=== PATIENT | female | born 1960 | race Hispanic/Latino ===

== ENCOUNTER 2024-11-15 10:49 | Inpatient (IN) | payer OTHER ==
[2024-11-15] MEDS ORDERED: ACETAMINOPHEN 500 MG TAB PO PRN (14:27)
--- NOTE | 2024-11-15 14:43 | P.HP ---
Certification for Inpatient Patient admitted to: Inpatient With expected LOS: >2 Midnights Patient will require the following post-hospital care: None Practitioner: I am a practitioner with admitting privileges, knowledge of patient current condition, hospital course, and medical plan of care. Services: Services provided to patient in accordance with Admission requirements found in Title 42 Section 412.3 of the Code of Federal Regulations Patient History Date of Service: 11/15/24 Reason for admission: Shortness of breath History of Present Illness: Patient is a 64-year-old female comes to the hospital with shortness of breath. Patient actually went to an outside hospital with these complaints. They did lab workup at the outside hospital which revealed a BNP of greater than 20,000. Patient's additional labs revealed BUN of 37 creatinine of 2.50, glucose of 211, total bilirubin 01.5, alk phos at 292, albumin of 3.0 and a troponin of 62.7 b elow the cutoff of 81.3, [place] [address], PT was 11.0 and a PTT of 24.7 and a D- dimer of 2312.2 with a cutoff being 500. Patient also was positive for rhino virus. At this time, patient will be accepted to our hospital for further plan of care. It appears the patient may have acute CHF exacerbation which may be exacerbated by upper respiratory viral infection. Patient's D-dimer is elevated so we need to rule out a pulmonary embolism and will get a V/Q scan performed as patient's creatinine is elevated. Allergies No Known Allergies Allergy (Unverified 11/15/24 13:42) Home Medications: Furosemide 40 mg PO BID* 11/15/24 Losartan Potassium 100 mg PO DAILY 11/15/24 Metoprolol Succinate 25 mg PO DAILY 11/15/24 Nifedipine [Nifedipine ER] 30 mg PO DAILY 11/15/24 - Past Medical/Surgical History Diabetic: Yes -: CKD -: CHF -: HTN -: COPD -: DM -: heart surgery - Family History Father Family History: Reviewed- Non-Contributory - Social History Smoking Status: Never smoker Alcohol use: No CD- Drugs: No Caffeine use: Yes Place of Residence: Home Review of Systems 10-point ROS is otherwise unremarkable Physical Examination - Vital Signs Temperature: 98 F Blood Pressure: 180/90 Pulse: 100 Respirations: 24 Pulse Ox (%): 85 - Physical Exam General: Alert, In no apparent distress, Oriented x3 HEENT: Atraumatic, PERRLA, Mucous membr. moist/pink, EOMI, Sclerae nonicteric Neck: Supple, 2+ carotid pulse no bruit, No LAD, Without JVD or thyroid abnormality Respiratory: Diminished, Crackles/rales Cardiovascular: Regular rate/rhythm, Normal S1 S2, Systolic murmur Gastrointestinal: Normal bowel sounds, Soft and benign, Non-distended, No tenderness Musculoskeletal: No clubbing, No tenderness, Swelling Integumentary: No rashes Neurological: Normal gait, Normal speech, Normal strength at 5/5 x4 extr, Normal tone, Sensation intact, Cranial nerves 3-12 intact, Normal affect Lymphatics: No axilla or inguinal lymphadenopathy Assessment & Plan - Problems (Diagnosis) (1) Acute respiratory failure Current Visit: Yes Status: Acute (2) Elevated d-dimer Current Visit: Yes Status: Acute (3) Acute CHF Current Visit: Yes Status: Acute (4) Acute kidney injury Current Visit: Yes Status: Acute (5) Hypoalbuminemia Current Visit: Yes Status: Acute - Plan 1. Acute respiratory failure with hypoxemia most likely related to acute CHF exacerbation as well as possibly a pulmonary embolism; patient will get a V/Q scan performed as well as echocardiogram. Cardiology consulted. Continue with strict blood pressure control and diuresing. Patient had a prior cardiac procedure will try to get the records regarding this. Her respiratory failure and acute CHF exacerbation is probably exacerbated by upper respiratory infection. Patient will continue with cardiac medications and will continue with Jardiance and check her for proteinuria. Patient will get renal ultrasound and a nephrology consultation as well. as D-dimer is elevated will get a V/Q scan to further evaluate for possible pulmonary embolism. Continue with anticoagulation for the time being. 2. Uncontrolled hypertension; blood pressure on arrival to the outside hospital was 190/100 with oxygen saturations of 85% on room air. After strict blood pressure control and diuresing patient patient's clinical status has improved. Will continue with aggressive current management. 3. Chronic kidney disease; patient may have acute on chronic kidney disease will continue monitoring renal function closely and get renal ultrasound and urine protein creatinine ratio was monitoring for urine protein. Additional renal workup per nephrology 4. rhino virus infection; supportive care 5. Gi DVT prophylaxis Critical care time spent on patient care was 55 minutes. Discharge Plan: Home Plan to discharge in: Greater than 2 days - Advance Directives Does patient have a Living Will: No Does patient have a Durable POA for Healthcare: No - Code Status/Comfort Care Code Status Assessed: Yes Code Status: Full Code Critical Care: Yes Time Spent Managing PTS Care (In Minutes): 50
[2024-11-15] MEDS ORDERED: HYDRALAZINE HCL 20 MG/ML VIAL IV PRN (15:16)
--- NOTE | 2024-11-15 15:35 | RAD REPORT ---
EXAM: Chest Single View HISTORY: 64 years Female Post VQ scan COMPARISON: No prior exams FINDINGS: LUNGS/PLEURA: Bilateral pleural effusions and bilateral basilar opacities. CARDIAC/MEDIASTINUM: Moderate cardiomegaly. UPPER ABDOMEN: No significant abnormality. BONES: No acute abnormality. LINES/TUBES/OTHER: N/A IMPRESSION: Bilateral pleural effusions with probable underlying atelectasis. Findings likely reflect congestive heart failure.
--- NOTE | 2024-11-15 15:40 | RAD REPORT ---
EXAMINATION: NUCLEAR MEDICINE VENTILATION PERFUSION SCAN XENON CLINICAL INDICATION: Female, 64 years old. Shortness of breath TECHNIQUE: Ventilation images after inhaled radiopharmaceutical obtained in multiple projections.. Pe rfusion images were obtained in multiple projections after intravenous injection of Tc-99m MAA. [id number]. RADIOPHARMACEUTICALS: 16.8 mCi of Xenon-133 and 6.6 mCi intravenous Tc-99m MAA. COMPARISON: Same day radiograph FINDINGS: VENTILATION: No focal ventilation defect. PERFUSION: A total of 2 subsegmental defects are present in the right lung. Single subsegmental defec t in the left lung. IMPRESSION: Intermediate probability for pulmonary embolism.
[2024-11-15] MEDS ORDERED: HEPARIN/D5W 25,000 UNIT/500 ML BAG IV SCH (16:00)
[2024-11-15 16:04] VITALS: BMI 24.9
[2024-11-15] MEDS: HEPARIN/D5W 25,000 UNIT/500 ML BAG IV SCH (16:05)
[2024-11-15] MEDS: NITROGLYCERIN 1 GM PKT TD ONE (16:05)
[2024-11-15 16:50] LABS: Sqamous Epithelial <5 /HPF (None Seen); Urine Micro Reflex YN NO BILL MICROSCOPIC
[2024-11-15 16:58] LABS: UR CREAT 99.0 mg/dL (20-320); UR PROTEIN 374.0 mg/dL (<11.9)
[2024-11-15] MEDS: INSULIN REGULAR (HUMAN) 100 UNIT/ML SQ SCH (19:54)
[2024-11-16] MEDS: GUAIFENESIN/CODEINE 5ML UCUP PO PRN (01:40)
[2024-11-16 06:12] LABS: Absolute Lymphocytes (CBC) 1.3 K/uL (0.7-4.9); Hematocrit 34.3 % (36.0-45.0); Hemoglobin 11.5 g/dL (12.0-15.0); MCH 28.1 pg (27.0-35.0); MCHC 33.3 g/dL (32.0-36.0); MCV 84.2 fL (80-100); MPV 8.8 fL (7.6-11.3); Nucleated RBC Absolute Count 0.0 (0-0); Nucleated Red Blood Cells % 0.0 % (0-0); RBC Red Blood Cell Count 4.08 M/uL (3.86-4.86); White Blood Count 6.40 thou/uL (4.3-10.9)
[2024-11-16 06:21] LABS: PT Prothrombin Time 13.6 SECONDS (10-13.0); PTT, Activated Partial Thromb 69.9 SECONDS (27.2-37.4); Protime INR 1.21
[2024-11-16 06:34] LABS: ALT/SGPT 25.0 U/L (13-56); AST/SGOT 22.0 U/L (15-37); Albumin 2.7 g/dL (3.4-5.0); Albumin/Globulin Ratio 0.7 (1.1-1.8); Alkaline Phosphatase 238.0 U/L (45-117); Anion Gap 11.5 mEq/L (5.0-15.0); BUN Blood Urea Nitrogen 40.0 mg/dL (7-18); Globulin 3.8 g/dL (2.3-3.5); Glucose Level 199.0 mg/dL (74-106); Potassium 4.5 mEq/L (3.5-5.1)
[2024-11-16] MEDS: NIFEDIPINE XL 30 MG TABLET PO SCH (08:47)
[2024-11-16] MEDS: METOPROLOL XL 25 MG TAB PO SCH (08:47)
--- NOTE | 2024-11-16 10:12 | P.CNS ---
Date of Consult: 11/16/24 Chief Complaint: Shortness of breath History of Present Illness: Patient with PMH of congestive heart failure, HTN, presented with worsening SOB and CARABALLO associated with cough and phlegm, Patient is kosovan speaking only so history was obtained through [employer] sales representative and talking to , she denies chest pain, no palpitations, no syncope, her mention that she was diagnosed with heart failure 6 years ago in [place] and that her medications are getting filled by her PCP clinic, she doesnt have a magento developer. Allergies No Known Allergies Allergy (Unverified 11/15/24 13:42) Home medications list reviewed: Yes Home Medications: Furosemide 40 mg PO BID* 11/15/24 Losartan Potassium 100 mg PO DAILY 11/15/24 Metoprolol Succinate 25 mg PO DAILY 11/15/24 Nifedipine [Nifedipine ER] 30 mg PO DAILY 11/15/24 - Past Medical/Surgical History Diabetic: Yes -: CKD -: CHF -: HTN -: COPD -: DM -: heart surgery - Family History Father Family History: Reviewed- Non-Contributory - Social History Alcohol use: No CD- Drugs: No Caffeine use: Yes Place of Residence: Home Review of Systems 10-point ROS is otherwise unremarkable Physical Examination Temp Pulse Resp BP Pulse Ox 97.7 F 80 20 158/99 H 95 11/16/24 08:00 11/16/24 08:47 11/16/24 08:00 11/16/24 08:47 11/16/24 08:00 General: Alert, In no apparent distress HEENT: Atraumatic, PERRLA, Mucous membr. moist/pink, EOMI, Sclerae nonicteric Neck: Supple, 2+ carotid pulse no bruit, No LAD, Without JVD or thyroid abnormality Respiratory: Clear to auscultation bilaterally, Normal air movement Cardiovascular: Regular rate/rhythm, Normal S1 S2 Gastrointestinal: Normal bowel sounds, No tenderness Musculoskeletal: No tenderness Integumentary: No rashes Neurological: Normal gait, Normal speech, Normal tone, Normal affect Lymphatics: No axilla or inguinal lymphadenopathy Laboratory Data (last 24 hrs) 11/16/24 11/16/24 11/16/24 05:50 05:50 05:50 WBC 6.40 Hgb 11.5 L Hct 34.3 L Plt Count 207 PT 13.6 H INR 1.21 APTT 69.9 H Sodium 135 L Potassium 4.5 BUN 40 H Creatinine 2.24 H Glucose 199 H Total Bilirubin 1.5 H AST 22 ALT 25 Alkaline Phosphatase 238 H 11/16/24 11/15/24 11/15/24 01:15 21:00 16:01 WBC Hgb Hct Plt Count PT INR APTT 87.5 H 79.2 H 29.5 Sodium Potassium BUN Creatinine Glucose Total Bilirubin AST ALT Alkaline Phosphatase - Problems (1) Acute on chronic combined systolic (congestive) and diastolic (congestive) heart failure Current Visit: Yes Status: Acute Plan: Patient with prior diagnosis of heart failure per family Echo show severe reduced LV systolic function with global hypokinesis continue Toprol XL 25 mg daily add Losartan 50 mg daily add Lasix 40 mg po BID Continue to monitor input and output and electrolytes Patient will need outpatient follow up with cardiology for Cardiac PET. (2) Elevated troponin Current Visit: Yes Status: Acute Plan: mild elevated and trended down back to normal, most likely secondary to PE (3) Elevated d-dimer Current Visit: Yes Status: Acute Plan: V-Q scan with intermediate probability for PE Start Eliquis 5 mg po BID
[2024-11-16] MEDS: ONDANSETRON 4 MG/2 ML VIAL IV PRN (11:04)
--- NOTE | 2024-11-16 11:47 | RAD REPORT ---
EXAM: CT brain without contrast HISTORY: Headache COMPARISON: None TECHNIQUE: Multiple contiguous axial images were obtained and a CT of the brain without contrast. Sag ittal and coronal reformats were performed. One or more of the following dose reduction techniques were used: Automated exposure control, adjust ment of the mA and/or kV according to patient size, and/or iterative reconstruction. FINDINGS: No evidence of hydrocephalus, intracranial hemorrhage, or extra-axial fluid collection. Mild brain atrophy with mild periventricular and deep white matter chronic microvascular ischemic ch anges present. No evidence of midline shift or areas of brain edema. The calvarium is intact. The visualized paranasal sinuses and mastoid air cells are essentially clear . IMPRESSION: No evidence of acute intracranial abnormality.
[2024-11-16] MEDS: APIXABAN 5 MG TABLET PO ONE (14:23)
[2024-11-16] MEDS: NACHLORIDE 0.45% 1,000 ML with NA BICARB 8.4% 50 MEQ IV SCH (16:08)
[2024-11-16] MEDS: NA CHLORIDE 0.9% 1,000 ML ONE (18:16)
--- NOTE | 2024-11-16 19:06 | RAD REPORT ---
EXAM: Chest Single View HISTORY: 64 years Female dyspnea COMPARISON: 11/15/2024 FINDINGS: LUNGS/PLEURA: Worsened bilateral interstitial and airspace disease. Bilateral pleural effusions are p resent. CARDIAC/MEDIASTINUM: Mild cardiomegaly UPPER ABDOMEN: No significant abnormality. BONES: No acute abnormality. LINES/TUBES/OTHER: N/A IMPRESSION: Significant interval worsening of pulmonary edema
[2024-11-16 19:20] LABS: Absolute Lymphocytes (CBC) 2.0 K/uL (0.7-4.9); Hematocrit 36.0 % (36.0-45.0); Hemoglobin 11.6 g/dL (12.0-15.0); MCH 27.6 pg (27.0-35.0); MCHC 32.2 g/dL (32.0-36.0); MCV 85.8 fL (80-100); MPV 9.4 fL (7.6-11.3); Nucleated RBC Absolute Count 0.0 (0-0); Nucleated Red Blood Cells % 0.1 % (0-0); RBC Red Blood Cell Count 4.20 M/uL (3.86-4.86); White Blood Count 7.10 thou/uL (4.3-10.9)
[2024-11-16 19:36] LABS: ALT/SGPT 27.0 U/L (13-56); AST/SGOT 24.0 U/L (15-37); Albumin 2.7 g/dL (3.4-5.0); Albumin/Globulin Ratio 0.7 (1.1-1.8); Alkaline Phosphatase 231.0 U/L (45-117); Anion Gap 12.2 mEq/L (5.0-15.0); BUN Blood Urea Nitrogen 38.0 mg/dL (7-18); Globulin 4.0 g/dL (2.3-3.5); Glucose Level 200.0 mg/dL (74-106); Magnesium 2.4 mg/dL (1.6-2.4); NT PRO-BNP 21213.0 pg/mL (<125); Potassium 4.2 mEq/L (3.5-5.1)
[2024-11-16 19:44] LABS: Blood O2 Saturation 66.9 % (92.0-98.5)
[2024-11-16] MEDS: ALBUMIN HUMAN 25% 100 ML IV ONE (19:44)
[2024-11-16 19:45] LABS: Arterial Blood Carboxyhemoglob 1.6 % (0.0-1.5); Blood Gas Oxyhemoglobin 57.3 % (94.0-97.0)
[2024-11-16] MEDS: FUROSEMIDE 40 MG/4 ML VIAL IV ONE (19:45)
[2024-11-16 19:46] LABS: Blood Gas Inspired Oxygen 40.0 %
[2024-11-16] MEDS: IPRATROPIUM BROM 0.5MG/2.5ML NEB PRN (19:48)
[2024-11-16] MEDS: ALBUTEROL 2.5 MG/3 ML NEB SOL NEB PRN (19:48)
[2024-11-16] MEDS: HEPARIN/D5W 25,000 UNIT/500 ML BAG IV SCH (20:53)
[2024-11-17 05:22] LABS: Absolute Lymphocytes (CBC) 1.3 K/uL (0.7-4.9); Hematocrit 35.0 % (36.0-45.0); Hemoglobin 11.5 g/dL (12.0-15.0); MCH 28.0 pg (27.0-35.0); MCHC 33.0 g/dL (32.0-36.0); MCV 85.0 fL (80-100); MPV 8.9 fL (7.6-11.3); Nucleated RBC Absolute Count 0.0 (0-0); Nucleated Red Blood Cells % 0.1 % (0-0); RBC Red Blood Cell Count 4.11 M/uL (3.86-4.86); White Blood Count 6.10 thou/uL (4.3-10.9)
[2024-11-17 05:40] LABS: ALT/SGPT 25.0 U/L (13-56); AST/SGOT 21.0 U/L (15-37); Albumin 3.1 g/dL (3.4-5.0); Albumin/Globulin Ratio 0.9 (1.1-1.8); Alkaline Phosphatase 206.0 U/L (45-117); Anion Gap 12.2 mEq/L (5.0-15.0); BUN Blood Urea Nitrogen 39.0 mg/dL (7-18); Globulin 3.5 g/dL (2.3-3.5); Glucose Level 171.0 mg/dL (74-106); Magnesium 2.4 mg/dL (1.6-2.4); Potassium 4.2 mEq/L (3.5-5.1)
--- NOTE | 2024-11-17 08:31 | RAD REPORT ---
EXAMINATION: US RETROPERITONEUM CLINICAL INDICATION: [facility] TECHNIQUE: Real-time ultrasonography of the abdomen was performed. COMPARISON: No prior exam. FINDINGS: RIGHT KIDNEY: Right renal length measurement: 7.9 cm. Normal in echogenicity and size. No calculus, s olid mass or hydronephrosis. LEFT KIDNEY: Left renal length measurement: 9.2 cm. Normal in echogenicity and size. No calculus, alice id mass or hydronephrosis. Linear echogenic mild shadowing left lower pole 1.1 cm probable calculus. URINARY BLADDER: Decompressed with some debris and Ospina catheter balloon present. ADDITIONAL FINDINGS: Mild perihepatic fluid. IMPRESSION: Probable left lower pole 1.1 cm calculus. No hydronephrosis. Decompressed urinary bladder limiting evaluation, with some debris present in the lumen. Mild perihepatic ascites.
--- NOTE | 2024-11-17 09:20 | P.PN ---
Subjective Date of Service: 11/16/24 Patient continued having episodes of dizziness and then had respiratory distress this evening around 1800. Patient became tachypneic and short of breath. A CODE BLUE was called; however, when I arrived to bedside she was awake and moving around. She was much more tachypneic and had extended JVP. Patient with significant cardiomyopathy with an EF of 20%. Her blood pressure was 80s over 50s. There was concern that she had gone into cardiogenic shock. We went ahead and gave her Lasix IV push. Patient had Levophed on standby. However, after the diuresing her blood pressure has improved. We moved her to ICU for critical care management. Cardiology is on the case and will notify them in the morning unless there is any significant changes overnight. At this time patient will be monitored in the intensive care unit and if she starts improving then we will hopefully downgrade. Continue with diuresing. Review of Systems 10-point ROS is otherwise unremarkable Physical Examination - Vital Signs Temperature: 97.8 F Blood Pressure: 155/80 Pulse: 74 Respirations: 14 Pulse Ox (%): 94 - Physical Exam General: Alert, In no apparent distress, Oriented x3 HEENT: Atraumatic, PERRLA, EOMI Neck: JVD distended Respiratory: Diminished, Crackles/rales Cardiovascular: Regular rate/rhythm, Normal S1 S2, Abnormal S1 S2 Gastrointestinal: Normal bowel sounds, Soft and benign, Non-distended, No tenderness Musculoskeletal: No clubbing, No tenderness, Swelling Integumentary: No rashes Neurological: Sensation intact, Cranial nerves 3-12 intact, Normal affect - Studies Laboratory Data (last 24 hrs) 11/17/24 11/17/24 11/17/24 05:09 05:09 03:16 WBC 6.10 Hgb 11.5 L Hct 35.0 L Plt Count 184 APTT 67.5 H Sodium 136 Potassium 4.2 BUN 39 H Creatinine 2.48 H Glucose 171 H Magnesium 2.4 Total Bilirubin 1.4 H AST 21 ALT 25 Alkaline Phosphatase 206 H 11/16/24 11/16/24 11/16/24 20:36 18:40 18:40 WBC 7.10 Hgb 11.6 L Hct 36.0 Plt Count 196 APTT 33.0 Sodium 134 L Potassium 4.2 BUN 38 H Creatinine 2.52 H Glucose 200 H Magnesium 2.4 Total Bilirubin 1.2 H AST 24 ALT 27 Alkaline Phosphatase 231 H 11/16/24 11/16/24 14:20 09:30 WBC Hgb Hct Plt Count APTT Cancelled 83.5 H Sodium Potassium BUN Creatinine Glucose Magnesium Total Bilirubin AST ALT Alkaline Phosphatase Medications List Reviewed: Yes Assessment & Plan - Problems (Diagnosis) (1) Acute respiratory failure Current Visit: Yes Status: Acute (2) Elevated d-dimer Current Visit: Yes Status: Acute (3) Acute CHF Current Visit: Yes Status: Acute (4) Acute kidney injury Current Visit: Yes Status: Acute (5) Hypoalbuminemia Current Visit: Yes Status: Acute (6) Acute exacerbation of CHF (congestive heart failure) Current Visit: Yes Status: Acute (7) Acute hypoxic respiratory failure Current Visit: Yes Status: Acute (8) Pulmonary embolism Current Visit: Yes Status: Acute - Plan 1. Acute respiratory failure with hypoxemia most likely related to acute CHF exacerbation as well as possibly a pulmonary embolism; patient with intermediate probability on the V/Q scan for pulmonary embolism. Echocardiogram also with elevated right ventricular pressures. Appreciate cardiology consultation. Continue with anticoagulation and diuresing. Patient had been on Eliquis but will change management coordinator to heparin drip. Increase IV diuresing. 2. Uncontrolled hypertension; blood pressure on arrival to the outside hospital was 190/100 with oxygen saturations of 85% on room air. After strict blood pressure control and diuresing patient patient's clinical status has improved. Will continue with aggressive current management. 3. Chronic kidney disease; patient may have acute on chronic kidney disease will continue monitoring renal function closely and get renal ultrasound and urine protein creatinine ratio was monitoring for urine protein. Additional renal workup per nephrology 4. Rhinovirus infection; supportive care 5. GI/DVT prophylaxis Critical care time spent on patient care was 55 minutes. Discharge Plan: Home Plan to discharge in: Greater than 2 days - Advance Directives Does patient have a Living Will: No Does patient have a Durable POA for Healthcare: No - Code Status/Comfort Care Code Status: Full Code Critical Care: Yes Time Spent Managing PTS Care (In Minutes): 55
--- NOTE | 2024-11-17 10:19 | P.CNS ---
Date of Consult: 11/17/24 Reason for Consult: Renal insufficiency Requesting Physician: Roopa Burden Chief Complaint: Shortness of breath History of Present Illness: Pt is a 64 year-old Welsh speaking female who reportedly came in to the hospital with worsening shortness of breath. Patient per reports has a diagnosis of CHF and on her listed meds has anti hypertensives and Lasix listed. She has been admitted to the ICU in the setting of initial accelerated HTN, troponin leak and acute pulm edema. Renal function is impaired. Ospina present, she is diuresing. She denies acute CP, no resp distress, stable on LFNC. Allergies No Known Allergies Allergy (Unverified 11/15/24 13:42) Home Medications: Furosemide 40 mg PO BID* 11/15/24 Losartan Potassium 100 mg PO DAILY 11/15/24 Metoprolol Succinate 25 mg PO DAILY 11/15/24 Nifedipine [Nifedipine ER] 30 mg PO DAILY 11/15/24 - Past Medical/Surgical History Diabetic: Yes -: CKD -: CHF -: HTN -: COPD -: DM -: heart surgery - Family History Father Family History: Reviewed- Non-Contributory - Social History Alcohol use: No CD- Drugs: No Caffeine use: Yes Place of Residence: Home Review of Systems General: Unremarkable Eyes: Unremarkable ENT: Unremarkable Respiratory: As per HPI Cardiovascular: As per HPI Gastrointestinal: Unremarkable Genitourinary: Unremarkable Musculoskeletal: Unremarkable Integumentary: Unremarkable Neurological: Unremarkable Physical Examination Temp Pulse Resp BP Pulse Ox 97.8 F 74 14 155/80 H 94 11/17/24 09:20 11/17/24 09:20 11/17/24 09:20 11/17/24 09:20 11/17/24 09:20 General: In no apparent distress, Cooperative HEENT: Atraumatic, Normocephalic, Other (LFNC) Neck: Supple Respiratory: Normal air movement, Other (Non tachypnec, no rhonchi) Cardiovascular: Regular rate/rhythm, Other (cardiac gallop heart sound is not appreciated) Gastrointestinal: Soft and benign, Non-distended, No tenderness Musculoskeletal: No swelling, No contractures Integumentary: No tenderness/swelling Neurological: Normal speech, Normal affect Urinary: Ospina catheter Laboratory Data (last 24 hrs) 11/17/24 11/17/24 11/17/24 05:09 05:09 03:16 WBC 6.10 Hgb 11.5 L Hct 35.0 L Plt Count 184 APTT 67.5 H Sodium 136 Potassium 4.2 BUN 39 H Creatinine 2.48 H Glucose 171 H Magnesium 2.4 Total Bilirubin 1.4 H AST 21 ALT 25 Alkaline Phosphatase 206 H 11/16/24 11/16/24 11/16/24 20:36 18:40 18:40 WBC 7.10 Hgb 11.6 L Hct 36.0 Plt Count 196 APTT 33.0 Sodium 134 L Potassium 4.2 BUN 38 H Creatinine 2.52 H Glucose 200 H Magnesium 2.4 Total Bilirubin 1.2 H AST 24 ALT 27 Alkaline Phosphatase 231 H 11/16/24 14:20 WBC Hgb Hct Plt Count APTT Cancelled Sodium Potassium BUN Creatinine Glucose Magnesium Total Bilirubin AST ALT Alkaline Phosphatase Conclusions/Impression: A/P) 1. Stage 1 TERESA on probable underlying CKD NOS, unknown renal function baseline, renal imaging shows some renal asymmetry with smaller sized Rt kidney. Renal impairment in the setting of Type 1/2 CRS +/- other. 2. Trend renal function tests closely on escalated diuretics 3. Abnormal findings in urine, including pyuria, microscopic hematuria and notable proteinuria on spot urine testing. Obtain UCx, not currently on Abx 4. Reported acute on chronic combined systolic + diastolic CHF, cont IV lasix, trend UOP closely. Acute pulm edema, clinically stable but infiltrates still seen radiographically. 5. Hypertensive heart and kidney disease, accelerated HTN -recommend afterload reduction, will place on isosorbide/hydralazine combination if tolerated, will add lower dose YESSY inhibitor if renal function remains stable on diuresis.
[2024-11-17] MEDS: FUROSEMIDE 40 MG/4 ML VIAL ONE (11:49)
[2024-11-17] MEDS: FUROSEMIDE 40 MG/4 ML VIAL IV ONE (11:50)
--- NOTE | 2024-11-17 14:12 | P.PN ---
Subjective Date of Service: 11/17/24 Chief Complaint: Shortness of breath Subjective: New changes (patient was tachpnic overnight so treansferred to ICU) Review of Systems 10-point ROS is otherwise unremarkable Physical Examination - Vital Signs Temperature: 97.8 F Blood Pressure: 126/71 Pulse: 70 Respirations: 14 Pulse Ox (%): 95 - Physical Exam General: Alert, In no apparent distress HEENT: Atraumatic, PERRLA, EOMI Neck: Supple, JVD not distended Respiratory: Clear to auscultation bilaterally, Normal air movement Cardiovascular: Regular rate/rhythm, Normal S1 S2 Gastrointestinal: Normal bowel sounds, No tenderness Musculoskeletal: No tenderness Integumentary: No rashes Neurological: Normal speech, Normal tone, Normal affect Lymphatics: No axilla or inguinal lymphadenopathy - Studies Laboratory Data (last 24 hrs) 11/17/24 11/17/24 11/17/24 09:03 05:09 05:09 WBC 6.10 Hgb 11.5 L Hct 35.0 L Plt Count 184 APTT 71.5 H Sodium 136 Potassium 4.2 BUN 39 H Creatinine 2.48 H Glucose 171 H Magnesium 2.4 Total Bilirubin 1.4 H AST 21 ALT 25 Alkaline Phosphatase 206 H 11/17/24 11/16/24 11/16/24 03:16 20:36 18:40 WBC Hgb Hct Plt Count APTT 67.5 H 33.0 Sodium 134 L Potassium 4.2 BUN 38 H Creatinine 2.52 H Glucose 200 H Magnesium 2.4 Total Bilirubin 1.2 H AST 24 ALT 27 Alkaline Phosphatase 231 H 11/16/24 11/16/24 18:40 14:20 WBC 7.10 Hgb 11.6 L Hct 36.0 Plt Count 196 APTT Cancelled Sodium Potassium BUN Creatinine Glucose Magnesium Total Bilirubin AST ALT Alkaline Phosphatase Medications List Reviewed: Yes Assessment And Plan - Current Problems (Diagnosis) (1) Acute on chronic combined systolic (congestive) and diastolic (congestive) heart failure Current Visit: Yes Status: Acute Plan: Patient with prior diagnosis of heart failure per family Echo show severe reduced LV systolic function with global hypokinesis Continue lasix 40 mg IV BID continue Toprol XL 25 mg daily continue Hydralazine continue Isordil Continue to monitor input and output and electrolytes Patient will need outpatient follow up with cardiology for Cardiac PET. (2) Elevated troponin Current Visit: Yes Status: Acute Plan: mild elevated and trended down back to normal, most likely secondary to PE (3) Elevated d-dimer Current Visit: Yes Status: Acute Plan: V-Q scan with intermediate probability for PE Start Eliquis 5 mg po BID
--- NOTE | 2024-11-17 15:30 | RAD REPORT ---
EXAMINATION: Brain Wo Cont CLINICAL INDICATION: Female, 64 years old. AMS TECHNIQUE: Multiplanar multisequence MR images of the brain were obtained without intravenous contras t. Unless otherwise specified, incidental findings do not require dedicated imaging follow-up. [id number]. COMPARISON: Yesterday head CT FINDINGS: INTRACRANIAL: No acute infarct identified. No significant mass effect or midline shift.No hydrocepha frederic. Mild chronic small vessel ischemic changes.Mild cerebral atrophy. VASCULATURE: Normal signal voids in the larger intracranial arteries and dural venous sinuses. SINUSES: The paranasal sinuses are predominantly clear.No mastoid effusions. BONE: The marrow signal pattern is within normal limits. IMPRESSION: No acute intracranial abnormality. Specifically, no evidence of acute infarct.
[2024-11-17] MEDS: HYDRALAZINE HCL 25 MG TABLET PO SCH (16:26)
[2024-11-17] MEDS: ISOSORBIDE DINIT 20 MG TAB PO SCH (16:26)
[2024-11-17] MEDS: FUROSEMIDE 40 MG/4 ML VIAL IV SCH (18:03)
[2024-11-18 09:34] LABS: Sqamous Epithelial None Seen /HPF (None Seen); Urine Culture Reflex Order NOT NEEDED; Urine Microscopic Reflex YN ORDER UMIC; Urine WBC Clump Rare /HPF (None Seen)
[2024-11-18] MEDS: MORPHINE 2 MG/ML SYR IV PRN (16:12)
--- NOTE | 2024-11-18 17:33 | P.PN ---
Date of Service: 11/17/24 Subjective Patient is feeling much better. Respiratory status improved. Patient was diuresed aggressively overnight and her respiratory status is much better at this time. Continue with current plan of care; Cardiac workup is pending. Continue with diuresing. Monitor respiratory status closely. Physical Examination - Vital Signs reviewed - Physical Exam General: Alert, In no apparent distress, Oriented x3 Respiratory: Diminished, Crackles/rales Cardiovascular: Regular rate/rhythm, Normal S1 S2, Abnormal S1 S2 Gastrointestinal: Normal bowel sounds, Soft and benign, Non-distended, No tenderness Musculoskeletal: No clubbing, No tenderness, Swelling Integumentary: No rashes Neurological: No focal deficits Assessment & Plan - Problems (Diagnosis) (1) Acute hypoxic respiratory failure Current Visit: Yes Status: Acute (2) Acute exacerbation of CHF (congestive heart failure) Current Visit: Yes Status: Acute (3) Pulmonary embolism Current Visit: Yes Status: Acute (4) Acute kidney injury Current Visit: Yes Status: Acute (5) Hypoalbuminemia Current Visit: Yes Status: Acute - Plan Continue with plan of care as mentioned below: 1. Acute respiratory failure with hypoxemia; Continue with diuresing. Patient with acute CHF exacerbation with an EF of 20-25%. Will need continue with cardiac meds at this time. Clinical status is improving. Patient's respiratory status is much better than yesterday when she had a rapid response and a code blue called because of her breathing issues. Will continue monitoring clinical status closely. 2. Uncontrolled hypertension; blood pressure on arrival to the outside hospital was 190/100 with oxygen saturations of 85% on room air. After strict blood pressure control and diuresing patient patient's clinical status has improved. Will continue with aggressive current management. 3. Chronic kidney disease; patient may have acute on chronic kidney disease will continue monitoring renal function closely and get renal ultrasound and urine protein creatinine ratio was monitoring for urine protein. Additional renal workup per nephrology 4. Pulmonary embolism; continue with anticoagulation. If patient does well with switch over to oral anti coagulants 5. Rhinovirus infection; supportive care 5. GI/DVT prophylaxis Critical care time spent on patient care was 30 minutes. Discharge Plan: Home Plan to discharge in: Greater than 2 days - Advance Directives Does patient have a Living Will: No Does patient have a Durable POA for Healthcare: No - Code Status/Comfort Care Code Status: Full Code Critical Care: Yes Time Spent Managing PTS Care (In Minutes): 55
--- NOTE | 2024-11-18 17:34 | P.PN ---
Date of Service: 11/18/24 Subjective Patient is doing well today. Patient denies any new complaints. Clinical symptoms are stable. Will continue with current plan of care at this time. Physical Examination - Vital Signs reviewed - Physical Exam General: Alert, In no apparent distress, Oriented x3 Respiratory: Diminished, Crackles/rales Cardiovascular: Regular rate/rhythm, Normal S1 S2, Abnormal S1 S2 Gastrointestinal: Normal bowel sounds, Soft and benign, Non-distended, No tenderness Musculoskeletal: No clubbing, No tenderness, Swelling Integumentary: No rashes Neurological: No focal deficits Assessment & Plan - Problems (Diagnosis) (1) Acute hypoxic respiratory failure Current Visit: Yes Status: Acute (2) Acute exacerbation of CHF (congestive heart failure) Current Visit: Yes Status: Acute (3) Pulmonary embolism Current Visit: Yes Status: Acute (4) Acute kidney injury Current Visit: Yes Status: Acute (5) Hypoalbuminemia Current Visit: Yes Status: Acute - Plan Continue with plan of care as mentioned below: 1. Acute respiratory failure with hypoxemia; Continue with diuresing. Patient with acute CHF exacerbation with an EF of 20-25%. Will need continue with cardiac meds at this time. Clinical status is improving. Patient's respiratory status is much better than yesterday when she had a rapid response and a code blue called because of her breathing issues. Will continue monitoring clinical status closely. 2. Uncontrolled hypertension; blood pressure on arrival to the outside hospital was 190/100 with oxygen saturations of 85% on room air. After strict blood pressure control and diuresing patient patient's clinical status has improved. Will continue with aggressive current management. 3. Chronic kidney disease; patient may have acute on chronic kidney disease will continue monitoring renal function closely and get renal ultrasound and urine protein creatinine ratio was monitoring for urine protein. Additional renal workup per nephrology 4. Pulmonary embolism; continue with anticoagulation. If patient does well with switch over to oral anti coagulants 5. Rhinovirus infection; supportive care 5. GI/DVT prophylaxis Critical care time spent on patient care was 30 minutes. Discharge Plan: Home Plan to discharge in: Greater than 2 days - Advance Directives Does patient have a Living Will: No Does patient have a Durable POA for Healthcare: No - Code Status/Comfort Care Code Status: Full Code Critical Care: NO Time Spent Managing PTS Care (In Minutes): 30
[2024-11-19 05:39] LABS: Anion Gap 10.7 mEq/L (5.0-15.0); BUN Blood Urea Nitrogen 47.0 mg/dL (7-18); Glucose Level 159.0 mg/dL (74-106); Potassium 3.7 mEq/L (3.5-5.1)
[2024-11-19] MEDS: APIXABAN 5 MG TABLET PO SCH (10:38)
--- NOTE | 2024-11-19 23:11 | P.PN ---
Date of Service: 11/19/24 Subjective Patient continues to improve. Clinical symptoms are much better. Continue with diuresing and anticoagulation for V/Q scan showing intermediate probability of pulmonary embolism. Spoke with Nephrology and appreciate their assistance in patient's care. Physical Examination - Vital Signs reviewed - Physical Exam General: Alert, In no apparent distress, Oriented x3 Respiratory: Diminished, Crackles/rales Cardiovascular: Regular rate/rhythm, Normal S1 S2, Abnormal S1 S2 Gastrointestinal: Normal bowel sounds, Soft and benign, Non-distended, No tenderness Musculoskeletal: No clubbing, No tenderness, Swelling Integumentary: No rashes Neurological: No focal deficits Assessment & Plan - Problems (Diagnosis) (1) Acute hypoxic respiratory failure Current Visit: Yes Status: Acute (2) Acute exacerbation of CHF (congestive heart failure) Current Visit: Yes Status: Acute (3) Pulmonary embolism Current Visit: Yes Status: Acute (4) Acute kidney injury Current Visit: Yes Status: Acute (5) Hypoalbuminemia Current Visit: Yes Status: Acute - Plan Continue with plan of care as mentioned below: 1. Acute respiratory failure with hypoxemia; Continue with diuresing. Patient with acute CHF exacerbation with an EF of 20-25%. Will need continue with cardiac meds at this time. Clinical status is improving. Patient's respiratory status is much better than yesterday when she had a rapid response and a code blue called because of her breathing issues. Will continue monitoring clinical status closely. 2. Uncontrolled hypertension; blood pressure on arrival to the outside hospital was 190/100 with oxygen saturations of 85% on room air. After strict blood pressure control and diuresing patient patient's clinical status has improved. Will continue with aggressive current management. 3. Chronic kidney disease; patient may have acute on chronic kidney disease will continue monitoring renal function closely and get renal ultrasound and urine protein creatinine ratio was monitoring for urine protein. Additional renal workup per nephrology 4. Pulmonary embolism; continue with anticoagulation. If patient does well with switch over to oral anti coagulants 5. Rhinovirus infection; supportive care 5. GI/DVT prophylaxis Critical care time spent on patient care was 30 minutes. Discharge Plan: Home Plan to discharge in: Greater than 2 days - Advance Directives Does patient have a Living Will: No Does patient have a Durable POA for Healthcare: No - Code Status/Comfort Care Code Status: Full Code Critical Care: NO Time Spent Managing PTS Care (In Minutes): 30
--- NOTE | 2024-11-20 09:44 | P.PN ---
Date of Service: 11/20/24 Vital Signs Temp Pulse Resp BP Pulse Ox 98.2 F 84 18 170/83 H 94 11/20/24 08:00 11/20/24 08:00 11/20/24 08:00 11/20/24 08:00 11/20/24 08:00 Medications Acetaminophen (Acetaminophen 500 Mg Tab) 500 mg PO Q6H PRN PRN Reason: pain/fever Albuterol Sulfate (Albuterol 2.5 Mg/3 Ml Neb Maggie) 2.5 mg NEB TIDRESP PRN PRN Reason: SHORTNESS OF BREATH Last Admin: 11/19/24 19:52 Dose: 2.5 mg Apixaban (Apixaban 5 Mg Tablet) 5 mg PO BID [facility] Last Admin: 11/20/24 08:16 Dose: 5 mg Furosemide (Furosemide 40 Mg/4 Ml Vial) 40 mg IV BIDL [facility] Last Admin: 11/20/24 08:15 Dose: 40 mg Guaifenesin/Codeine Phosphate (Guaifenesin/Codeine 5ml Ucup) 5 ml PO QID PRN PRN Reason: COUGH Last Admin: 11/16/24 08:50 Dose: 5 ml Hydralazine HCl (Hydralazine Hcl 20 Mg/Ml Vial) 10 mg IV Q4HP PRN PRN Reason: FOR SBP>160 OR DBP>100 MMHG Hydralazine HCl (Hydralazine Hcl 25 Mg Tablet) 25 mg PO TID [facility] Last Admin: 11/20/24 08:15 Dose: 25 mg Insulin Human Regular (Insulin Regular (Human) 100 Unit/Ml) 0 unit SQ [facility]; Protocol Last Admin: 11/20/24 07:30 Dose: Not Given Ipratropium [place] (Ipratropium Brom 0.5mg/2.5ml) 0.5 mg NEB TIDRESP PRN PRN Reason: SHORTNESS OF BREATH Last Admin: 11/19/24 19:52 Dose: 0.5 mg Isosorbide Dinitrate (Isosorbide Dinit 20 Mg Tab) 20 mg PO TID@0800,1400,1800 [facility] Last Admin: 11/20/24 08:15 Dose: 20 mg Metoprolol Succinate (Metoprolol Xl 25 Mg Tab) 25 mg PO DAILY [facility] Last Admin: 11/20/24 08:16 Dose: 25 mg Morphine Sulfate (Morphine 2 Mg/Ml Syr) 2 mg IV Q4H PRN PRN Reason: Pain scale 5-10 (ModSevPain) Last Admin: 11/18/24 16:12 Dose: 2 mg Ondansetron HCl (Ondansetron 4 Mg/2 Ml Vial) 4 mg IV Q8H PRN PRN Reason: NAUSEA / VOMITING Last Admin: 11/16/24 11:04 Dose: 4 mg Lab Results (last 24 hrs) 11/20/24 07:35: POC Glucose 132 H 11/20/24 04:46: APTT 31.3 11/19/24 23:17: POC Glucose 132 H 11/19/24 19:24: POC Glucose 251 H 11/19/24 16:03: POC Glucose 256 H 11/19/24 11:23: POC Glucose 329 H Assessment/ Plan: Nephrology Progress Note No Dyspnea No Chest Pain No Acute Events Overnight Feeling better and wants to go home Vital Signs, Medications, Blood Work, and Imaging reviewed in the chart NAD. NCAT. MMM. Neck Supple. Normal Respiratory Effort/ CTA. RRR. Abd ND. No C/C. LE Edema none. No Rash. AAO. Normal Speech. [place] Yellow Assessment & Plan Stage I TERESA likely CRS CKD IV with Proteinuria -No NSAIDs HTN with CKD/ CHF -Continue Metoprolol -Continue Hydralazine Systolic Diastolic CHF, A/C -Continue furosemide DM II with CKD -Continue Lantus -RISS Anemia in chronic illness -Monitor H&H Case reviewed with Dr. Duran
--- NOTE | 2024-11-20 09:56 | P.PN ---
Subjective Date of Service: 11/20/24 Chief Complaint: Shortness of breath Subjective: No new changes, No C/O voiced, Tolerating diet, Improving Review of Systems 10-point ROS is otherwise unremarkable Physical Examination - Vital Signs Temperature: 98.2 F Blood Pressure: 170/83 Pulse: 84 Respirations: 18 Pulse Ox (%): 94 - Physical Exam General: Alert, In no apparent distress HEENT: Atraumatic, PERRLA, EOMI Neck: Supple, JVD not distended Respiratory: Clear to auscultation bilaterally, Normal air movement Cardiovascular: Regular rate/rhythm, Normal S1 S2 Gastrointestinal: Normal bowel sounds, No tenderness Musculoskeletal: No tenderness Integumentary: No rashes Neurological: Normal speech, Normal tone, Normal affect Lymphatics: No axilla or inguinal lymphadenopathy - Studies Laboratory Data (last 24 hrs) 11/20/24 04:46 APTT 31.3 Medications List Reviewed: Yes Assessment And Plan - Current Problems (Diagnosis) (1) Acute on chronic combined systolic (congestive) and diastolic (congestive) heart failure Current Visit: Yes Status: Acute Plan: Patient with prior diagnosis of heart failure per family Echo show severe reduced LV systolic function with global hypokinesis switch lasix to 40 mg po daily continue Toprol XL 25 mg daily continue Hydralazine continue Isordil Continue to monitor input and output and electrolytes Patient will need outpatient follow up with cardiology for Cardiac PET. Cardiology will sign off, please call with any questions. (2) Elevated troponin Current Visit: Yes Status: Acute Plan: mild elevated and trended down back to normal, most likely secondary to PE (3) Elevated d-dimer Current Visit: Yes Status: Acute Plan: V-Q scan with intermediate probability for PE Eliquis 5 mg po BID
--- NOTE | 2024-11-20 15:51 | P.PN ---
Date of Service: 11/20/24 Subjective: Assuming care today. welder apprentice gas used during today's discussion. at bedside today. She is on 3 L nasal cannula. She states she is feeling better. He says sometimes she walks at home without a walker. She does not wear oxygen at home. She is tolerating her diet. She becomes very short of breath with minimal exertion. She does not have any problems voiding or having bowel movements. Review of system 10 point review systems otherwise negative except as mentioned in subjective Physical Examination - Vital Signs reviewed - Physical Exam General: Alert, In no apparent distress, Oriented x3 Respiratory: Diminished, Crackles/rales Cardiovascular: Regular rate/rhythm, Normal S1 S2, Abnormal S1 S2 Gastrointestinal: Normal bowel sounds, Soft and benign, Non-distended, No tenderness Musculoskeletal: No clubbing, No tenderness, Swelling Integumentary: No rashes Neurological: No focal deficits Assessment & Plan - Problems (Diagnosis) (1) Acute hypoxic respiratory failure Current Visit: Yes Status: Acute (2) Acute exacerbation of CHF (congestive heart failure) Current Visit: Yes Status: Acute (3) Pulmonary embolism Current Visit: Yes Status: Acute (4) Acute kidney injury Current Visit: Yes Status: Acute (5) Hypoalbuminemia Current Visit: Yes Status: Acute - Plan 11/20 - Await home O2 eval - Continue diuresis with IV Lasix twice daily - Needs outpatient cardiac PET - Start Eliquis 5 mg p.o. twice daily for VQ scan with intermediate probability of PE - Blood pressure improved, continue Toprol-XL, Isordil, - Uncontrolled type 2 diabetes mellitus with hyperglycemia, add insulin glargine 5 units nightly - fiscal services manager consult for home health with physical therapy Continue with plan of care as mentioned below: 1. Acute respiratory failure with hypoxemia; Continue with diuresing. Patient with acute CHF exacerbation with an EF of 20-25%. Will need continue with cardiac meds at this time. Clinical status is improving. Patient's respiratory status is much better than yesterday when she had a rapid response and a code blue called because of her breathing issues. Will continue monitoring clinical status closely. 2. Uncontrolled hypertension; blood pressure on arrival to the outside hospital was 190/100 with oxygen saturations of 85% on room air. After strict blood pressure control and diuresing patient patient's clinical status has improved. Will continue with aggressive current management. 3. Chronic kidney disease; patient may have acute on chronic kidney disease will continue monitoring renal function closely and get renal ultrasound and urine protein creatinine ratio was monitoring for urine protein. Additional renal workup per nephrology 4. Pulmonary embolism; continue with anticoagulation. If patient does well with switch over to oral anti coagulants 5. Rhinovirus infection; supportive care 5. GI/DVT prophylaxis Critical care time spent on patient care was 30 minutes. Discharge Plan: Home Plan to discharge in: Greater than 2 days - Advance Directives Does patient have a Living Will: No Does patient have a Durable POA for Healthcare: No - Code Status/Comfort Care Code Status: Full Code Critical Care: NO I spent a total of 55 minutes on this patient encounter on 11/20/2024. This time included reviewing the chart, obtaining history, performing an exam, counseling the patient/family, coordinating care, and documenting in the medical record
[2024-11-20] MEDS: INSULIN GLARGINE 100 UNIT/ML SQ SCH (21:47)
[2024-11-21 08:25] LABS: Absolute Lymphocytes (CBC) 1.2 K/uL (0.7-4.9); Hematocrit 38.7 % (36.0-45.0); Hemoglobin 12.7 g/dL (12.0-15.0); MCH 27.4 pg (27.0-35.0); MCHC 32.7 g/dL (32.0-36.0); MCV 83.9 fL (80-100); MPV 8.0 fL (7.6-11.3); Nucleated RBC Absolute Count 0.0 (0-0); Nucleated Red Blood Cells % 0.1 % (0-0); RBC Red Blood Cell Count 4.61 M/uL (3.86-4.86); White Blood Count 7.60 thou/uL (4.3-10.9)
[2024-11-21 08:45] LABS: ALT/SGPT 22.0 U/L (13-56); AST/SGOT 14.0 U/L (15-37); Albumin 2.9 g/dL (3.4-5.0); Albumin/Globulin Ratio 0.7 (1.1-1.8); Alkaline Phosphatase 192.0 U/L (45-117); Anion Gap 9.9 mEq/L (5.0-15.0); BUN Blood Urea Nitrogen 50.0 mg/dL (7-18); Globulin 4.0 g/dL (2.3-3.5); Glucose Level 188.0 mg/dL (74-106); Potassium 3.9 mEq/L (3.5-5.1)
--- NOTE | 2024-11-21 16:15 | P.DS ---
Admission Date: 11/15/24 Discharge Date: 11/21/24 Disposition: ROUTINE DISCHARGE Discharge Condition: GOOD Reason for Admission: Shortness of breath Brief History of Present Illness: Patient is a 64-year-old female comes to the hospital with shortness of breath. Patient actually went to an outside hospital with these complaints. They did lab workup at the outside hospital which revealed a BNP of greater than 20,000. Patient's additional labs revealed BUN of 37 creatinine of 2.50, glucose of 211, total bilirubin 01.5, alk phos at 292, albumin of 3.0 and a troponin of 62.7 below the cutoff [place] 81.3[place] [address], PT was 11.0 and a PTT of 24.7 and a D- dimer of 2312.2 with a cutoff being 500. Patient also was positive for rhino virus. At this time, patient will be accepted to our hospital for further plan of care. It appears the patient may have acute CHF exacerbation which may be exacerbated by upper respiratory viral infection. Patient's D-dimer is elevated so we need to rule out a pulmonary embolism and will get a V/Q scan performed as patient's creatinine is elevated. Upon admission patient was started on Eliquis and IV Lasix. Cardiology was consulted. Her clinical condition improved over the course of her stay. echocardiogram revealed severely reduced left ventricular systolic function with global hypokinesis. She has been started on Toprol XL 25 mg, hydralazine, Isordil. She will follow-up with mine equipment design engineer as outpatient. She has been prescribed Eliquis for the next 6 months. Follow-up with her primary care physician. She is medically optimized for discharge Hospital Course: Physical Examination - Vital Signs reviewed - Physical Exam General: Alert, In no apparent distress, Oriented x3 Respiratory: Diminished, Crackles/rales Cardiovascular: Regular rate/rhythm, Normal S1 S2, Abnormal S1 S2 Gastrointestinal: Normal bowel sounds, Soft and benign, Non-distended, No tenderness Musculoskeletal: No clubbing, No tenderness, Swelling Integumentary: No rashes Neurological: No focal deficits Assessment & Plan - Problems (Diagnosis) (1) Acute hypoxic respiratory failure Current Visit: Yes Status: Acute (2) Acute exacerbation of CHF (congestive heart failure) Current Visit: Yes Status: Acute (3) Pulmonary embolism Current Visit: Yes Status: Acute (4) Acute kidney injury Current Visit: Yes Status: Acute (5) Hypoalbuminemia Current Visit: Yes Status: Acute - Plan 11/21 - Await home O2 eval - Continue diuresis with Lasix twice daily on discharge - Monitor blood pressure closely as losartan and nifedipine were not started during admission. May need to decrease dose of losartan - Needs outpatient cardiac PET - Start Eliquis 5 mg p.o. twice daily for VQ scan with intermediate probability of PE - Blood pressure improved, continue Toprol-XL, Isordil, - Uncontrolled type 2 diabetes mellitus with hyperglycemia, add insulin glargine 5 units nightly - director of student financial services consult for home health with physical therapy Continue with plan of care as mentioned below: 1. Acute respiratory failure with hypoxemia; Continue with diuresing. Patient with acute CHF exacerbation with an EF of 20-25%. Will need continue with cardiac meds at this time. Clinical status is improving. Patient's respiratory status is much better than yesterday when she had a rapid response and a code blue called because of her breathing issues. Will continue monitoring clinical status closely. 2. Uncontrolled hypertension; blood pressure on arrival to the outside hospital was 190/100 with oxygen saturations of 85% on room air. After strict blood pressure control and diuresing patient patient's clinical status has improved. Will continue with aggressive current management. 3. Chronic kidney disease; patient may have acute on chronic kidney disease will continue monitoring renal function closely and get renal ultrasound and urine protein creatinine ratio was monitoring for urine protein. Additional renal workup per nephrology 4. Pulmonary embolism; continue with anticoagulation. If patient does well with switch over to oral anti coagulants 5. Rhinovirus infection; supportive care 5. GI/DVT prophylaxis Critical care time spent on patient care was 30 minutes. Discharge Plan: Home Plan to discharge in: Greater than 2 days - Advance Directives Does patient have a Living Will: No Does patient have a Durable POA for Healthcare: No - Code Status/Comfort Care Code Status: Full Code Critical Care: NO I spent a total of 55 minutes on this patient encounter on 11/20/2024. This time included reviewing the chart, obtaining history, performing an exam, counseling the patient/family, coordinating care, and documenting in the medical record Vital Signs/Physical Exam: Temp Pulse Resp BP Pulse Ox 98.0 F 83 18 145/76 H 97 11/21/24 12:00 11/21/24 12:00 11/21/24 12:00 11/21/24 12:00 11/21/24 12:00 Laboratory Data at Discharge: WBC 7.60 thou/uL (4.3-10.9) 11/21/24 08:10 Hgb 12.7 g/dL (12.0-15.0) 11/21/24 08:10 Hct 38.7 % (36.0-45.0) 11/21/24 08:10 Plt Count 248 thou/uL (152-406) 11/21/24 08:10 PT 13.6 SECONDS (10-13.0) H 11/16/24 05:50 INR 1.21 11/16/24 05:50 APTT 31.3 SECONDS (27.2-37.4) 11/20/24 04:46 Sodium 133 mEq/L (136-145) L 11/21/24 08:10 Potassium 3.9 mEq/L (3.5-5.1) 11/21/24 08:10 BUN 50 mg/dL (7-18) H 11/21/24 08:10 Creatinine 2.51 mg/dL (0.55-1.02) H 11/21/24 08:10 Glucose 188 mg/dL (74-106) H 11/21/24 08:10 Magnesium 2.4 mg/dL (1.6-2.4) 11/17/24 05:09 Total Bilirubin 0.9 mg/dL (0.2-1.0) 11/21/24 08:10 AST 14 U/L (15-37) L 11/21/24 08:10 ALT 22 U/L (13-56) 11/21/24 08:10 Alkaline Phosphatase 192 U/L (45-117) H 11/21/24 08:10 Home Medications: Furosemide 40 mg PO BID* 11/15/24 Losartan Potassium 100 mg PO DAILY 11/15/24 Metoprolol Succinate 25 mg PO DAILY 11/15/24 Nifedipine [Nifedipine ER] 30 mg PO DAILY 11/15/24 Apixaban [Eliquis] 5 mg PO BID 30 Days #60 tab 11/21/24 Guaifen W/Codeine Syrup [ROBITUSSIN A-C Syrup*] 5 ml PO QID PRN 30 Days #1 bottle 11/21/24 New Medications: Apixaban [Eliquis] 5 mg PO BID 30 Days #60 tab Guaifen W/Codeine Syrup [ROBITUSSIN A-C Syrup*] 5 ml PO QID PRN 30 Days #1 bottle PRN Reason: Cough Followup: TRISTAN HUDSON [Primary Care Provider] -
--- NOTE | 2024-11-21 19:58 | P.PN ---
Date of Service: 11/21/24 Vital Signs Temp Pulse Resp BP Pulse Ox 97.9 F 77 18 125/70 97 11/21/24 16:00 11/21/24 16:00 11/21/24 16:00 11/21/24 16:00 11/21/24 16:00 Medications Acetaminophen (Acetaminophen 500 Mg Tab) 500 mg PO Q6H PRN PRN Reason: pain/fever Albuterol Sulfate (Albuterol 2.5 Mg/3 Ml Neb Maggie) 2.5 mg NEB TIDRESP PRN PRN Reason: SHORTNESS OF BREATH Last Admin: 11/20/24 12:57 Dose: 2.5 mg Apixaban (Apixaban 5 Mg Tablet) 5 mg PO BID [facility] Last Admin: 11/21/24 08:54 Dose: 5 mg Furosemide (Furosemide 40 Mg/4 Ml Vial) 40 mg IV BIDL [facility] Last Admin: 11/21/24 18:15 Dose: 40 mg Guaifenesin/Codeine Phosphate (Guaifenesin/Codeine 5ml Ucup) 5 ml PO QID PRN PRN Reason: COUGH Last Admin: 11/16/24 08:50 Dose: 5 ml Hydralazine HCl (Hydralazine Hcl 20 Mg/Ml Vial) 10 mg IV Q4HP PRN PRN Reason: FOR SBP>160 OR DBP>100 MMHG Hydralazine HCl (Hydralazine Hcl 25 Mg Tablet) 25 mg PO TID [facility] Last Admin: 11/21/24 14:50 Dose: 25 mg Insulin Glargine (Insulin Glargine 100 Unit/Ml) 5 unit SQ BEDTIME [facility] Last Admin: 11/20/24 21:47 Dose: 5 unit Insulin Human Regular (Insulin Regular (Human) 100 Unit/Ml) 0 unit SQ [facility]; Protocol Last Admin: 11/21/24 16:30 Dose: Not Given Ipratropium Lamar (Ipratropium Brom 0.5mg/2.5ml) 0.5 mg NEB TIDRESP PRN PRN Reason: SHORTNESS OF BREATH Last Admin: 11/19/24 19:52 Dose: 0.5 mg Isosorbide Dinitrate (Isosorbide Dinit 20 Mg Tab) 20 mg PO TID@0800,1400,1800 [facility] Last Admin: 11/21/24 18:15 Dose: 20 mg Metoprolol Succinate (Metoprolol Xl 25 Mg Tab) 25 mg PO DAILY [facility] Last Admin: 11/21/24 08:54 Dose: 25 mg Morphine Sulfate (Morphine 2 Mg/Ml Syr) 2 mg IV Q4H PRN PRN Reason: Pain scale 5-10 (ModSevPain) Last Admin: 11/18/24 16:12 Dose: 2 mg Ondansetron HCl (Ondansetron 4 Mg/2 Ml Vial) 4 mg IV Q8H PRN PRN Reason: NAUSEA / VOMITING Last Admin: 11/16/24 11:04 Dose: 4 mg Lab Results (last 24 hrs) 11/21/24 19:30: POC Glucose 304 H 11/21/24 15:56: POC Glucose 166 H 11/21/24 11:24: POC Glucose 339 H 11/21/24 08:10: Sodium 133 L, Potassium 3.9, Chloride 96 L, Carbon Dioxide 31, Anion Gap 9.9, BUN 50 H, Creatinine 2.51 H, Est GFR (CKD-EPI) 21 L, Glucose 188 H, Calcium 8.8, Total Bilirubin 0.9, AST 14 L, ALT 22, Alkaline Phosphatase 192 H, Serum Total Protein 6.9, Albumin 2.9 L, Globulin 4.0 H, Albumin/Globulin Ratio 0.7 L 11/21/24 08:10: WBC 7.60, RBC 4.61, Hgb 12.7, Hct 38.7, MCV 83.9, MCH 27.4, MCHC 32.7, RDW 16.5 H, Plt Count 248, MPV 8.0, Neutrophils % 70.5, Lymphocytes % 16.0, Monocytes % 10.4, Eosinophils % 2.6, Basophils % 0.5, Absolute Neutrophils 5.3, Absolute Lymphocytes 1.2, Absolute Monocytes 0.8, Absolute Eosinophils 0.2, Absolute Basophils 0.0 11/21/24 07:20: POC Glucose 191 H 11/20/24 20:50: POC Glucose 265 H Assessment/ Plan: Nephrology Progress Note No Dyspnea No Chest Pain No Acute Events Overnight Vital Signs, Medications, Blood Work, and Imaging reviewed in the chart NAD. NCAT. MMM. Neck Supple. Normal Respiratory Effort/ CTA. RRR. Abd ND. No C/C. LE Edema none. No Rash. AAO. Normal Speech. Ospina Yellow Assessment & Plan Stage I TERESA likely CRS CKD IV with Proteinuria -No NSAIDs HTN with CKD/ CHF -Continue Metoprolol -Continue Hydralazine Systolic Diastolic CHF, A/C -Continue furosemide DM II with CKD -Continue Lantus -RISS Anemia in chronic illness -Monitor H&H Case reviewed with Dr. Duran
[2024-11-22 08:37] VITALS: O2SAT 92
[2024-11-22 12:26] VITALS: BP 160/81; TEMP 98.3
--- NOTE | 2024-11-22 17:43 | P.DS ---
Admission Date: 11/15/24 Discharge Date: 11/22/24 Disposition: ROUTINE DISCHARGE Discharge Condition: GOOD Reason for Admission: Shortness of breath Brief History of Present Illness: Patient is a 64-year-old female comes to the hospital with shortness of breath. Patient actually went to an outside hospital with these complaints. They did lab workup at the outside hospital which revealed a BNP of greater than 20,000. Patient's additional labs revealed BUN of 37 creatinine of 2.50, glucose of 211, total bilirubin 01.5, alk phos at 292, albumin of 3.0 and a troponin of 62.7 below the cutoff [place] 81.3[place] [address], PT was 11.0 and a PTT of 24.7 and a D- dimer of 2312.2 with a cutoff being 500. Patient also was positive for rhino virus. At this time, patient will be accepted to our hospital for further plan of care. It appears the patient may have acute CHF exacerbation which may be exacerbated by upper respiratory viral infection. Patient's D-dimer is elevated so we need to rule out a pulmonary embolism and will get a V/Q scan performed as patient's creatinine is elevated. Upon admission patient was started on Eliquis and IV Lasix. Cardiology was consulted. Her clinical condition improved over the course of her stay. echocardiogram revealed severely reduced left ventricular systolic function with global hypokinesis. She has been started on Toprol XL 25 mg, hydralazine, Isordil. She will follow-up with shift stacker as outpatient. She has been prescribed Eliquis for the next 6 months. Follow-up with her primary care physician. She is medically optimized for discharge Hospital Course: Physical Examination - Vital Signs reviewed - Physical Exam General: Alert, In no apparent distress, Oriented x3 Respiratory: Diminished, Crackles/rales Cardiovascular: Regular rate/rhythm, Normal S1 S2, Abnormal S1 S2 Gastrointestinal: Normal bowel sounds, Soft and benign, Non-distended, No tenderness Musculoskeletal: No clubbing, No tenderness, Swelling Integumentary: No rashes Neurological: No focal deficits Assessment & Plan - Problems (Diagnosis) (1) Acute hypoxic respiratory failure Current Visit: Yes Status: Acute (2) Acute exacerbation of CHF (congestive heart failure) Current Visit: Yes Status: Acute (3) Pulmonary embolism Current Visit: Yes Status: Acute (4) Acute kidney injury Current Visit: Yes Status: Acute (5) Hypoalbuminemia Current Visit: Yes Status: Acute - Plan 11/21 - Await home O2 eval - Continue diuresis with Lasix twice daily on discharge - Monitor blood pressure closely as losartan and nifedipine were not started during admission. May need to decrease dose of losartan - Needs outpatient cardiac PET - Start Eliquis 5 mg p.o. twice daily for VQ scan with intermediate probability of PE - Blood pressure improved, continue Toprol-XL, Isordil, - Uncontrolled type 2 diabetes mellitus with hyperglycemia, add insulin glargine 5 units nightly - financial services officer consult for home health with physical therapy Continue with plan of care as mentioned below: 1. Acute respiratory failure with hypoxemia; Continue with diuresing. Patient with acute CHF exacerbation with an EF of 20-25%. Will need continue with cardiac meds at this time. Clinical status is improving. Patient's respiratory status is much better than yesterday when she had a rapid response and a code blue called because of her breathing issues. Will continue monitoring clinical status closely. 2. Uncontrolled hypertension; blood pressure on arrival to the outside hospital was 190/100 with oxygen saturations of 85% on room air. After strict blood pressure control and diuresing patient patient's clinical status has improved. Will continue with aggressive current management. 3. Chronic kidney disease; patient may have acute on chronic kidney disease will continue monitoring renal function closely and get renal ultrasound and urine protein creatinine ratio was monitoring for urine protein. Additional renal workup per nephrology 4. Pulmonary embolism; continue with anticoagulation. If patient does well with switch over to oral anti coagulants 5. Rhinovirus infection; supportive care 5. GI/DVT prophylaxis Critical care time spent on patient care was 30 minutes. Discharge Plan: Home Plan to discharge in: Greater than 2 days - Advance Directives Does patient have a Living Will: No Does patient have a Durable POA for Healthcare: No - Code Status/Comfort Care Code Status: Full Code Critical Care: NO I spent a total of 55 minutes on this patient encounter on 11/20/2024. This time included reviewing the chart, obtaining history, performing an exam, counseling the patient/family, coordinating care, and documenting in the medical record Vital Signs/Physical Exam: Temp Pulse Resp BP Pulse Ox 98.3 F 77 16 160/81 H 98 11/22/24 12:00 11/22/24 12:00 11/22/24 12:00 11/22/24 12:00 11/22/24 12:00 Laboratory Data at Discharge: WBC 7.60 thou/uL (4.3-10.9) 11/21/24 08:10 Hgb 12.7 g/dL (12.0-15.0) 11/21/24 08:10 Hct 38.7 % (36.0-45.0) 11/21/24 08:10 Plt Count 248 thou/uL (152-406) 11/21/24 08:10 PT 13.6 SECONDS (10-13.0) H 11/16/24 05:50 INR 1.21 11/16/24 05:50 APTT 31.3 SECONDS (27.2-37.4) 11/20/24 04:46 Sodium 133 mEq/L (136-145) L 11/21/24 08:10 Potassium 3.9 mEq/L (3.5-5.1) 11/21/24 08:10 BUN 50 mg/dL (7-18) H 11/21/24 08:10 Creatinine 2.51 mg/dL (0.55-1.02) H 11/21/24 08:10 Glucose 188 mg/dL (74-106) H 11/21/24 08:10 Magnesium 2.4 mg/dL (1.6-2.4) 11/17/24 05:09 Total Bilirubin 0.9 mg/dL (0.2-1.0) 11/21/24 08:10 AST 14 U/L (15-37) L 11/21/24 08:10 ALT 22 U/L (13-56) 11/21/24 08:10 Alkaline Phosphatase 192 U/L (45-117) H 11/21/24 08:10 Home Medications: Metoprolol Succinate 25 mg PO DAILY 11/15/24 Apixaban [Eliquis] 5 mg PO BID 30 Days #60 tab 11/21/24 Guaifen W/Codeine Syrup [ROBITUSSIN A-C Syrup*] 5 ml PO QID PRN 30 Days #1 bottle 11/21/24 Furosemide [Lasix] 40 mg PO DAILY 30 Days #30 tab 11/22/24 Isosorbide Dinit [Isordil*] 20 mg PO TID@0800,1400,1800 30 Days #90 tab 11/22/24 New Medications: Apixaban [Eliquis] 5 mg PO BID 30 Days #60 tab Isosorbide Dinit [Isordil*] 20 mg PO TID@0800,1400,1800 30 Days #90 tab Furosemide [Lasix] 40 mg PO DAILY 30 Days #30 tab Guaifen W/Codeine Syrup [ROBITUSSIN A-C Syrup*] 5 ml PO QID PRN 30 Days #1 quintin ttle PRN Reason: Cough Followup: William Gann DO [ACTIVE - CAN ADMIT] - Pacheco Morrison MD [ACTIVE - CAN ADMIT] - OOT,OOT [Primary Care Provider] -
--- NOTE | 2024-11-22 22:07 | P.PN ---
Date of Service: 11/22/24 Vital Signs Temp Pulse Resp BP Pulse Ox 98.3 F 77 16 160/81 H 98 11/22/24 12:00 11/22/24 12:00 11/22/24 12:00 11/22/24 12:00 11/22/24 12:00 Lab Results (last 24 hrs) 11/22/24 12:13: POC Glucose 315 H 11/22/24 07:12: POC Glucose 225 H Assessment/ Plan: Nephrology Progress Note No Dyspnea No Chest Pain No Acute Events Overnight Vital Signs, Medications, Blood Work, and Imaging reviewed in the chart NAD. NCAT. MMM. Neck Supple. Normal Respiratory Effort/ CTA. RRR. Abd ND. No C/C. LE Edema none. No Rash. AAO. Normal Speech. Ospina Reba Assessment & Plan Stage I TERESA likely CRS CKD IV with Proteinuria -No NSAIDs HTN with CKD/ CHF -Continue Metoprolol -Continue Hydralazine Systolic Diastolic CHF, A/C -Continue furosemide DM II with CKD -Continue Lantus -RISS Anemia in chronic illness -Monitor H&H Case reviewed with Dr. Duran
== END 2024-11-22 13:08 | disposition home health service (06) | DRG 175 ==
LOC: 4TH 10:49 → 3RD-ICU 11-16 18:19 → 2ND 11-18
PROVIDERS: ADMIT Hospitalist; ATTEND Family Medicine
PROC: 4A033R1 Measurement of Arterial Saturation, Peripheral, Percutaneous Approach (ICD-10-PCS; principal; 2024-11-16)
PROC: 0T9B70Z Drainage of Bladder with Drainage Device, Via Natural or Artificial Opening (ICD-10-PCS; 2024-11-16)
DX: I26.99 Other pulmonary embolism without acute cor pulmonale (principal); I50.43 Acute on chronic combined systolic (congestive) and diastolic (congestive) heart failure; J96.01 Acute respiratory failure with hypoxia; R57.0 Cardiogenic shock; R65.10 Systemic inflammatory response syndrome (SIRS) of non-infectious origin without acute organ dysfunction; N17.9 Acute kidney failure, unspecified; I13.0 Hypertensive heart and chronic kidney disease with heart failure and stage 1 through stage 4 chronic kidney disease, or unspecified chronic kidney disease; I42.9 Cardiomyopathy, unspecified; N18.4 Chronic kidney disease, stage 4 (severe); D63.1 Anemia in chronic kidney disease; E11.22 Type 2 diabetes mellitus with diabetic chronic kidney disease; E11.65 Type 2 diabetes mellitus with hyperglycemia; J44.9 Chronic obstructive pulmonary disease, unspecified; E88.09 Other disorders of plasma-protein metabolism, not elsewhere classified; R31.29 Other microscopic hematuria; B97.89 Other viral agents as the cause of diseases classified elsewhere; Z79.899 Other long term (current) drug therapy
CPT/HCPCS: 36415; 36600; 70450; 70551; 71045; 76770; 78582; 80048; 80053; 81001; 82570; 82805; 82947; 83605; 83735; 83880; 84145; 84156; 84484; 85025; 85610; 85730; 93306; 94640; 97161; A9540; A9558; J1644; J1815; J1938; J2270; J2405; J7030; J7613; J7644; P9047